=== PATIENT | male | born 1960 | race Caucasian/White ===

== ENCOUNTER 2020-06-07 18:18 | Inpatient (IN) | payer OTHER ==
[~2020-06-07] VITALS: Ht 162.6 cm; Wt 88.0 kg
[2020-06-07 18:43] VITALS: Ht 162.6 cm; Wt 88.0 kg
[2020-06-07 19:49] LABS: BASOPHIL % 0.8 % (0.2-1.5); PLATELET COUNT 184 x10^3mcL (152-348); RED CELL DISTRIBUTION WIDTH 12.7 % (12.1-16.2)
[2020-06-07 19:59] LABS: CALCIUM 8.8 mg/dL (8.5-10.1); CARBON DIOXIDE 26.3 mmol/L (21-32); CHLORIDE SERUM 103 mmol/L (98-107); CREATININE SERUM 0.9 mg/dL (0.7-1.3); GFR1 > 60 mL/min; GLUCOSE SERUM 103 mg/dL (74-106); POTASSIUM SERUM 3.7 mmol/L (3.5-5.1); SODIUM SERUM 139 mmol/L (136-145)
[2020-06-07 20:03] LABS: ALBUMIN 3.9 g/dL (3.4-5.0); ALKALINE PHOSPHATASE 48 U/L (46-116); ALT/SGPT 39 U/L (16-63); AST/SGOT 31 U/L (15-37); BILIRUBIN TOTAL 0.3 mg/dL (0.20-1.00); TOTAL PROTEIN, SERUM 7.7 g/dL (6.4-8.2)
[2020-06-07 20:05] LABS: AMPHETAMINE QUAL UR NONE DETECTED (See below)
[2020-06-07 20:14] LABS: FREE T4 0.9 ng/dL (0.76-1.46); T4(THYROXINE) 5.8 ug/dL (4.7-13.3)
[2020-06-07 20:17] LABS: T3 TOTAL 1.07 ng/mL
[2020-06-07 23:17] VITALS: BP 126/94
[2020-06-08 06:28] VITALS: BP 127/77
[2020-06-08 07:59] LABS: BASOPHIL % 0.3 % (0.2-1.5); PLATELET COUNT 173 x10^3mcL (152-348); RED CELL DISTRIBUTION WIDTH 12.9 % (12.1-16.2)
[2020-06-08 08:24] LABS: CALCIUM 8.4 mg/dL (8.5-10.1); CARBON DIOXIDE 26.5 mmol/L (21-32); CHLORIDE SERUM 105 mmol/L (98-107); CREATININE SERUM 0.9 mg/dL (0.7-1.3); GFR1 > 60 mL/min; GLUCOSE SERUM 91 mg/dL (74-106); MAGNESIUM 2.3 mg/dL (1.8-2.4); PHOSPHOROUS 3.2 mg/dL (2.5-4.9); POTASSIUM SERUM 3.7 mmol/L (3.5-5.1); SODIUM SERUM 140 mmol/L (136-145)
[2020-06-08 09:30] VITALS: BP 128/78
[2020-06-08 12:49] VITALS: BP 121/73
[2020-06-08] MEDS ORDERED: ECO81 PO (17:13)
[2020-06-08] MEDS ORDERED: [UNRECOGNIZED DRUG - CODE] PO (17:13)
[2020-06-08 17:16] VITALS: BP 130/81
[2020-06-08 18:09] VITALS: BP 121/73
== END 2020-06-08 18:48 | disposition home or self-care (01) | DRG 310 ==
LOC: ED 18:18 → DU 20:27
PROVIDERS: Emergency Medicine; ADMIT Internal Medicine; ATTEND Internal Medicine
DX: I48.0 Paroxysmal atrial fibrillation (principal); Z20.822 Contact with and (suspected) exposure to COVID-19
CPT/HCPCS: 84439; G0378; J3490; J7030; U0003